=== PATIENT | male | born 1945 | race Caucasian/White ===

== ENCOUNTER 2017-09-10 21:40 | Emergency (ER) | payer MEDICARE, OTHER | END 2017-09-11 03:01 | disposition home or self-care (01) | LOC: E/R 09-11 03:01 | DX: H53.9 Unspecified visual disturbance (principal); Z87.891 Personal history of nicotine dependence | CPT/HCPCS: 99282 ==

== ENCOUNTER 2017-09-30 05:12 | Inpatient (IN) | payer MEDICARE, OTHER ==
[2017-09-30] MEDS: SODIUM CHLORIDE 0.9% 1L BAG IV* (06:18)
[2017-09-30 06:23] LABS: ADD MAN DIFF? NO
[2017-09-30 06:27] LABS: ABNORMAL IP MESSAGE 1; BASOPHILS % 0.4 % (0.0-2.0); EOSINOPHILS # 0.1 10^3/ul (0.0-0.5); EOSINOPHILS % 0.9 % (0.0-7.0); HEMATOCRIT 39.3 % (42.0-52.0); HEMOGLOBIN 13.2 g/dl (14.0-18.0); LYMPHOCYTES # 0.4 10^3/ul (0.8-2.9); LYMPHOCYTES % 5.6 % (15.0-51.0); MEAN CORPUSCULAR HEMOGLOBIN 32.2 pg (29.0-33.0); MEAN CORPUSCULAR HGB CONC 33.6 g/dl (32.0-37.0); MEAN CORPUSCULAR VOLUME 95.9 fl (82.0-101.0); MEAN PLATELET VOLUME 8.1 fl (7.4-10.4); MONOCYTE # 0.5 10^3/ul (0.3-0.9); NEUTROPHIL # 5.8 10^3/ul (1.6-7.5); NEUTROPHILS % 85.4 % (39.0-77.0); PLATELET COUNT 280 10^3/UL (140-415); POSITIVE DIFF @See below; RED CELL DISTRIBUTION WIDTH 13.4 % (11.5-14.5)
[2017-09-30 06:27] LABS: WHITE BLOOD COUNT 6.8 10^3/ul (4.8-10.8)
[2017-09-30 06:46] LABS: PROTIME 11.1 Sec (11.9-14.9); PT RATIO 0.9
[2017-09-30 06:47] LABS: LACTIC ACID 0.6 mmol/L (0.5-2.0)
[2017-09-30 06:47] LABS: ALANINE AMINOTRANSFERASE 10 IU/L (13-69); ALBUMIN 4.1 g/dl (3.3-4.9); ALBUMIN/GLOBULIN RATIO 1.13; ALKALINE PHOSPHATASE 140 IU/L (42-121); ANION GAP 13 (8-16); ASPARTATE AMINO TRANSFERASE 38 IU/L (15-46); BILIRUBIN,INDIRECT 0.2 mg/dl (0-1.1); BILIRUBIN,TOTAL 0.2 mg/dl (0.2-1.3); BLOOD UREA NITROGEN 10 mg/dl (7-20); CALCIUM 8.8 mg/dl (8.4-10.2); CARBON DIOXIDE 31 mmol/L (21-31); CHLORIDE 87 mmol/L (97-110); CREATININE 0.77 mg/dl (0.61-1.24); GLUCOSE 96 mg/dl (70-220); PARTIAL THROMBOPLASTIN TIME 36.1 Sec (25.0-35.0); POTASSIUM 4.1 mmol/L (3.5-5.1); SODIUM 127 mmol/L (135-144); TOTAL PROTEIN 7.7 g/dl (6.1-8.1)
[2017-09-30 06:59] LABS: TROPONIN-I < 0.010 ng/ml (0.000-0.120)
[2017-09-30 08:01] LABS: ADD UMIC NO; UR ASCORBIC ACID NEGATIVE (NEGATIVE); UR BILIRUBIN (Dip) NEGATIVE (NEGATIVE); UR BLOOD (Dip) NEGATIVE (NEGATIVE); UR CLARITY CLEAR (CLEAR); UR COLOR COLORLESS (YELLOW); UR GLUCOSE (Dip) NEGATIVE (NEGATIVE); UR KETONES (Dip) NEGATIVE (NEGATIVE); UR LEUKOCYTE ESTERASE (Dip) NEGATIVE Leu/ul (NEGATIVE); UR NITRITE (Dip) NEGATIVE (NEGATIVE); UR SPECIFIC GRAVITY (Dip) 1.002 (1.003-1.030); UR TOTAL PROTEIN (Dip) NEGATIVE (NEGATIVE); UR UROBILINOGEN (Dip) NEGATIVE (NEGATIVE)
[2017-09-30] MEDS ORDERED: MAGNESIUM HYDROXIDE 30ML CUP PO (09:00)
[2017-09-30] MEDS ORDERED: NACL 0.9% 3 ML SYG IV (09:00)
[2017-09-30] MEDS ORDERED: ONDANSETRON 4 MG INJ IV (09:00)
[2017-09-30] MEDS: DULOXETINE 20 MG CAP DR PO (10:05)
[2017-09-30] MEDS: AMLODIPINE 10 MG TAB PO (10:05)
[2017-09-30] MEDS: SOD CHLORIDE 0.9% 1,000 ML IV ×2 (10:06→17:43)
[2017-09-30] MEDS: OLANZAPINE 5 MG TAB PO (10:06)
[2017-09-30] MEDS: HYDROCODONE/APAP (5/325) TAB PO (13:21)
[2017-09-30 13:38] LABS: LACTIC ACID 1.3 mmol/L (0.5-2.0)
[2017-09-30 14:47] LABS: URIC ACID 2.9 mg/dl (3.1-7.9)
[2017-10-01] MEDS: ACETAMINOPHEN 325 MG TAB PO ×2 (02:49→14:53)
[2017-10-01] MEDS: PANTOPRAZOLE (EC) 40 MG TAB PO (06:14)
[2017-10-01] MEDS: SOD CHLORIDE 0.9% 1,000 ML IV ×2 (06:14→14:53)
[2017-10-01] MEDS: LEVOTHYROXINE 100 MCG TAB PO (06:15)
[2017-10-01 07:30] LABS: ADD MAN DIFF? NO
[2017-10-01 07:40] LABS: ABNORMAL IP MESSAGE 1; BASOPHILS % 0.5 % (0.0-2.0); EOSINOPHILS % 0.3 % (0.0-7.0); HEMATOCRIT 41.9 % (42.0-52.0); HEMOGLOBIN 13.5 g/dl (14.0-18.0); LYMPHOCYTES # 0.4 10^3/ul (0.8-2.9); LYMPHOCYTES % 6.7 % (15.0-51.0); MEAN CORPUSCULAR HEMOGLOBIN 30.9 pg (29.0-33.0); MEAN CORPUSCULAR HGB CONC 32.2 g/dl (32.0-37.0); MEAN CORPUSCULAR VOLUME 95.9 fl (82.0-101.0); MEAN PLATELET VOLUME 8.2 fl (7.4-10.4); MONOCYTE # 0.4 10^3/ul (0.3-0.9); MONOCYTES % 5.9 % (0.0-11.0); NEUTROPHIL # 5.4 10^3/ul (1.6-7.5); NEUTROPHILS % 86.1 % (39.0-77.0); PLATELET COUNT 295 10^3/UL (140-415); POSITIVE DIFF @See below; RED BLOOD COUNT 4.37 10^6/ul (4.70-6.10); RED CELL DISTRIBUTION WIDTH 13.6 % (11.5-14.5)
[2017-10-01 07:40] LABS: WHITE BLOOD COUNT 6.3 10^3/ul (4.8-10.8)
[2017-10-01] MEDS: AMLODIPINE 10 MG TAB PO (08:18)
[2017-10-01] MEDS: DULOXETINE 20 MG CAP DR PO (08:18)
[2017-10-01] MEDS: OLANZAPINE 5 MG TAB PO (08:18)
[2017-10-01 08:29] LABS: ALBUMIN 3.5 g/dl (3.3-4.9); ANION GAP 11 (8-16); BLOOD UREA NITROGEN 12 mg/dl (7-20); CALCIUM 8.4 mg/dl (8.4-10.2); CARBON DIOXIDE 29 mmol/L (21-31); CHLORIDE 95 mmol/L (97-110); GLUCOSE 84 mg/dl (70-220); MAGNESIUM 1.8 mg/dl (1.7-2.5); PHOSPHORUS 3.7 mg/dl (2.5-4.9); POTASSIUM 4.1 mmol/L (3.5-5.1); SODIUM 131 mmol/L (135-144)
[2017-10-01] MEDS ORDERED: hydrALAzine 20 MG INJ IV (20:30)
[2017-10-02] MEDS: SOD CHLORIDE 0.9% 1,000 ML IV ×3 (00:50→20:20)
[2017-10-02] MEDS: ACETAMINOPHEN 325 MG TAB PO (01:21)
[2017-10-02] MEDS: LEVOTHYROXINE 100 MCG TAB PO (06:23)
[2017-10-02] MEDS: PANTOPRAZOLE (EC) 40 MG TAB PO (06:23)
[2017-10-02 07:28] LABS: ADD MAN DIFF? NO
[2017-10-02 07:33] LABS: ABNORMAL IP MESSAGE 1; BASOPHILS % 0.4 % (0.0-2.0); EOSINOPHILS % 0.1 % (0.0-7.0); HEMATOCRIT 38.9 % (42.0-52.0); HEMOGLOBIN 12.5 g/dl (14.0-18.0); LYMPHOCYTES # 0.4 10^3/ul (0.8-2.9); MEAN CORPUSCULAR HEMOGLOBIN 31.8 pg (29.0-33.0); MEAN CORPUSCULAR HGB CONC 32.1 g/dl (32.0-37.0); MEAN PLATELET VOLUME 7.8 fl (7.4-10.4); MONOCYTE # 0.4 10^3/ul (0.3-0.9); NEUTROPHIL # 8.2 10^3/ul (1.6-7.5); NEUTROPHILS % 90.9 % (39.0-77.0); PLATELET COUNT 301 10^3/UL (140-415); POSITIVE DIFF @See below; RED BLOOD COUNT 3.93 10^6/ul (4.70-6.10); RED CELL DISTRIBUTION WIDTH 13.7 % (11.5-14.5)
[2017-10-02 07:59] LABS: ALBUMIN 3.4 g/dl (3.3-4.9); ANION GAP 12 (8-16); BLOOD UREA NITROGEN 12 mg/dl (7-20); CALCIUM 8.3 mg/dl (8.4-10.2); CARBON DIOXIDE 29 mmol/L (21-31); CHLORIDE 94 mmol/L (97-110); CREATININE 0.71 mg/dl (0.61-1.24); GLUCOSE 98 mg/dl (70-220); MAGNESIUM 1.7 mg/dl (1.7-2.5); PHOSPHORUS 3.3 mg/dl (2.5-4.9); POTASSIUM 3.5 mmol/L (3.5-5.1); SODIUM 131 mmol/L (135-144)
[2017-10-02] MEDS: DULOXETINE 20 MG CAP DR PO (08:47)
[2017-10-02] MEDS: AMLODIPINE 10 MG TAB PO (08:47)
[2017-10-02] MEDS: OLANZAPINE 5 MG TAB PO (08:47)
[2017-10-02] MEDS: POTASSIUM CHLORIDE (SR) 20 MEQ TAB PO (09:33)
[2017-10-02] MEDS: MAGNESIUM OXIDE 400 MG TAB PO (09:33)
[2017-10-03] MEDS: PANTOPRAZOLE (EC) 40 MG TAB PO (04:34)
[2017-10-03] MEDS: LEVOTHYROXINE 100 MCG TAB PO (04:34)
[2017-10-03] MEDS: SOD CHLORIDE 0.9% 1,000 ML IV ×3 (04:34→21:33)
[2017-10-03 06:08] LABS: ADD MAN DIFF? NO
[2017-10-03 06:17] LABS: WHITE BLOOD COUNT 8.9 10^3/ul (4.8-10.8)
[2017-10-03 06:17] LABS: ABNORMAL IP MESSAGE 1; BASOPHILS % 0.3 % (0.0-2.0); EOSINOPHILS % 0.1 % (0.0-7.0); HEMATOCRIT 33.8 % (42.0-52.0); HEMOGLOBIN 11.2 g/dl (14.0-18.0); LYMPHOCYTES # 0.3 10^3/ul (0.8-2.9); LYMPHOCYTES % 3.2 % (15.0-51.0); MEAN CORPUSCULAR HEMOGLOBIN 32.1 pg (29.0-33.0); MEAN CORPUSCULAR HGB CONC 33.1 g/dl (32.0-37.0); MEAN CORPUSCULAR VOLUME 96.8 fl (82.0-101.0); MEAN PLATELET VOLUME 8.3 fl (7.4-10.4); MONOCYTE # 0.5 10^3/ul (0.3-0.9); MONOCYTES % 5.9 % (0.0-11.0); NEUTROPHILS % 90.1 % (39.0-77.0); PLATELET COUNT 290 10^3/UL (140-415); POSITIVE DIFF @See below; RED BLOOD COUNT 3.49 10^6/ul (4.70-6.10); RED CELL DISTRIBUTION WIDTH 13.8 % (11.5-14.5)
[2017-10-03 06:44] LABS: ANION GAP 11 (8-16); BLOOD UREA NITROGEN 9 mg/dl (7-20); CALCIUM 8.2 mg/dl (8.4-10.2); CARBON DIOXIDE 27 mmol/L (21-31); CHLORIDE 96 mmol/L (97-110); CREATININE 0.57 mg/dl (0.61-1.24); GLUCOSE 93 mg/dl (70-220); MAGNESIUM 1.5 mg/dl (1.7-2.5); PHOSPHORUS 3.1 mg/dl (2.5-4.9); POTASSIUM 3.8 mmol/L (3.5-5.1); SODIUM 130 mmol/L (135-144)
[2017-10-03] MEDS: MAGNESIUM OXIDE 400 MG TAB PO (08:48)
[2017-10-03] MEDS: OLANZAPINE 5 MG TAB PO (08:48)
[2017-10-03] MEDS: DULOXETINE 20 MG CAP DR PO (08:48)
[2017-10-03] MEDS: AMLODIPINE 10 MG TAB PO (08:49)
[2017-10-03] MEDS: HYDROCODONE/APAP (5/325) TAB PO (18:55)
[2017-10-03] MEDS ORDERED: HYDROCODONE/APAP (5/325) TAB PO (23:00)
[2017-10-04] MEDS: HYDROCODONE/APAP (5/325) TAB PO ×2 (02:28→21:12)
[2017-10-04] MEDS: LEVOTHYROXINE 100 MCG TAB PO (04:55)
[2017-10-04] MEDS: DOCUSATE SODIUM 100 MG CAP PO (04:55)
[2017-10-04] MEDS: PANTOPRAZOLE (EC) 40 MG TAB PO (04:55)
[2017-10-04 06:02] LABS: ADD MAN DIFF? NO
[2017-10-04 06:08] LABS: ABNORMAL IP MESSAGE 1; BASOPHILS % 0.2 % (0.0-2.0); EOSINOPHILS % 0.1 % (0.0-7.0); HEMATOCRIT 29.1 % (42.0-52.0); HEMOGLOBIN 9.4 g/dl (14.0-18.0); LYMPHOCYTES # 0.3 10^3/ul (0.8-2.9); LYMPHOCYTES % 3.6 % (15.0-51.0); MEAN CORPUSCULAR HEMOGLOBIN 32.2 pg (29.0-33.0); MEAN CORPUSCULAR HGB CONC 32.3 g/dl (32.0-37.0); MEAN CORPUSCULAR VOLUME 99.7 fl (82.0-101.0); MEAN PLATELET VOLUME 8.3 fl (7.4-10.4); MONOCYTE # 0.7 10^3/ul (0.3-0.9); MONOCYTES % 7.3 % (0.0-11.0); NEUTROPHIL # 7.8 10^3/ul (1.6-7.5); NEUTROPHILS % 87.8 % (39.0-77.0); PLATELET COUNT 206 10^3/UL (140-415); POSITIVE DIFF @See below; RED BLOOD COUNT 2.92 10^6/ul (4.70-6.10); RED CELL DISTRIBUTION WIDTH 14.1 % (11.5-14.5)
[2017-10-04 06:08] LABS: WHITE BLOOD COUNT 8.9 10^3/ul (4.8-10.8)
[2017-10-04 06:39] LABS: ALBUMIN 2.2 g/dl (3.3-4.9); ANION GAP 7 (8-16); BLOOD UREA NITROGEN 9 mg/dl (7-20); CARBON DIOXIDE 24 mmol/L (21-31); CHLORIDE 108 mmol/L (97-110); CREATININE 0.43 mg/dl (0.61-1.24); GLUCOSE 69 mg/dl (70-220); MAGNESIUM 1.1 mg/dl (1.7-2.5); PHOSPHORUS 2.4 mg/dl (2.5-4.9); SODIUM 136 mmol/L (135-144)
[2017-10-04 06:41] LABS: CALCIUM 5.9 mg/dl (8.4-10.2)
[2017-10-04 08:36] LABS: CALCIUM 8.3 mg/dl (8.4-10.2)
[2017-10-04] MEDS: OLANZAPINE 5 MG TAB PO (09:28)
[2017-10-04] MEDS: DULOXETINE 20 MG CAP DR PO (09:28)
[2017-10-04] MEDS: POTASSIUM CHLORIDE (SR) 20 MEQ TAB PO ×2 (09:28→11:48)
[2017-10-04] MEDS: AMLODIPINE 10 MG TAB PO (09:29)
[2017-10-04] MEDS: MAGNESIUM SULFATE 4 GM/100 ML 100 ML IVPB (11:41)
[2017-10-04] MEDS: SOD CHLORIDE 0.9% 1,000 ML IV (12:50)
[2017-10-05 06:12] LABS: ADD MAN DIFF? NO
[2017-10-05 06:17] LABS: WHITE BLOOD COUNT 12.8 10^3/ul (4.8-10.8)
[2017-10-05 06:17] LABS: ABNORMAL IP MESSAGE 1; BASOPHILS % 0.2 % (0.0-2.0); EOSINOPHILS % 0.1 % (0.0-7.0); HEMATOCRIT 32.9 % (42.0-52.0); LYMPHOCYTES # 0.4 10^3/ul (0.8-2.9); LYMPHOCYTES % 2.8 % (15.0-51.0); MEAN CORPUSCULAR HEMOGLOBIN 32.4 pg (29.0-33.0); MEAN CORPUSCULAR HGB CONC 33.4 g/dl (32.0-37.0); MEAN CORPUSCULAR VOLUME 97.1 fl (82.0-101.0); MEAN PLATELET VOLUME 8.4 fl (7.4-10.4); MONOCYTES % 8.1 % (0.0-11.0); NEUTROPHIL # 11.3 10^3/ul (1.6-7.5); NEUTROPHILS % 88.3 % (39.0-77.0); PLATELET COUNT 246 10^3/UL (140-415); POSITIVE DIFF @See below; RED BLOOD COUNT 3.39 10^6/ul (4.70-6.10)
[2017-10-05] MEDS: PANTOPRAZOLE (EC) 40 MG TAB PO (06:32)
[2017-10-05] MEDS: LEVOTHYROXINE 100 MCG TAB PO (06:32)
[2017-10-05 06:34] LABS: ALBUMIN 3.3 g/dl (3.3-4.9); ANION GAP 11 (8-16); BLOOD UREA NITROGEN 15 mg/dl (7-20); CALCIUM 8.4 mg/dl (8.4-10.2); CARBON DIOXIDE 30 mmol/L (21-31); CHLORIDE 90 mmol/L (97-110); CREATININE 0.61 mg/dl (0.61-1.24); GLUCOSE 97 mg/dl (70-220); MAGNESIUM 1.9 mg/dl (1.7-2.5); POTASSIUM 4.6 mmol/L (3.5-5.1); SODIUM 126 mmol/L (135-144)
[2017-10-05 06:49] LABS: PHOSPHORUS 3.6 mg/dl (2.5-4.9)
[2017-10-05] MEDS: AMLODIPINE 10 MG TAB PO (08:38)
[2017-10-05] MEDS: OLANZAPINE 5 MG TAB PO (08:38)
[2017-10-05] MEDS: DULOXETINE 20 MG CAP DR PO (08:38)
[2017-10-05] MEDS: SOD CHLORIDE 0.9% 1,000 ML IV (11:15)
[2017-10-05] MEDS: SODIUM CHLORIDE 1 GM TAB PO (15:13)
[2017-10-06] MEDS: HYDROCODONE/APAP (5/325) TAB PO ×2 (01:00→15:02)
[2017-10-06] MEDS: PANTOPRAZOLE (EC) 40 MG TAB PO (06:39)
[2017-10-06] MEDS: LEVOTHYROXINE 100 MCG TAB PO (06:39)
[2017-10-06 07:08] LABS: ADD MAN DIFF? NO
[2017-10-06 07:16] LABS: ABNORMAL IP MESSAGE 1; BASOPHILS % 0.4 % (0.0-2.0); EOSINOPHILS % 0.4 % (0.0-7.0); HEMATOCRIT 31.3 % (42.0-52.0); HEMOGLOBIN 10.1 g/dl (14.0-18.0); LYMPHOCYTES # 0.4 10^3/ul (0.8-2.9); LYMPHOCYTES % 5.7 % (15.0-51.0); MEAN CORPUSCULAR HEMOGLOBIN 31.4 pg (29.0-33.0); MEAN CORPUSCULAR HGB CONC 32.3 g/dl (32.0-37.0); MEAN CORPUSCULAR VOLUME 97.2 fl (82.0-101.0); MEAN PLATELET VOLUME 8.4 fl (7.4-10.4); MONOCYTE # 0.8 10^3/ul (0.3-0.9); MONOCYTES % 10.7 % (0.0-11.0); NEUTROPHIL # 5.9 10^3/ul (1.6-7.5); NEUTROPHILS % 82.4 % (39.0-77.0); PLATELET COUNT 233 10^3/UL (140-415); POSITIVE DIFF @See below; RED BLOOD COUNT 3.22 10^6/ul (4.70-6.10); RED CELL DISTRIBUTION WIDTH 13.8 % (11.5-14.5)
[2017-10-06 07:16] LABS: WHITE BLOOD COUNT 7.2 10^3/ul (4.8-10.8)
[2017-10-06 08:12] LABS: ANION GAP 12 (8-16); BLOOD UREA NITROGEN 12 mg/dl (7-20); CALCIUM 8.4 mg/dl (8.4-10.2); CARBON DIOXIDE 28 mmol/L (21-31); CHLORIDE 91 mmol/L (97-110); CREATININE 0.59 mg/dl (0.61-1.24); GLUCOSE 104 mg/dl (70-220); MAGNESIUM 1.6 mg/dl (1.7-2.5); PHOSPHORUS 3.5 mg/dl (2.5-4.9); SODIUM 127 mmol/L (135-144)
[2017-10-06] MEDS: DULOXETINE 20 MG CAP DR PO (08:23)
[2017-10-06] MEDS: OLANZAPINE 5 MG TAB PO (08:24)
[2017-10-06] MEDS: AMLODIPINE 10 MG TAB PO (08:24)
[2017-10-06] MEDS: MAGNESIUM OXIDE 400 MG TAB PO (12:50)
[2017-10-07] MEDS: HYDROCODONE/APAP (5/325) TAB PO (03:22)
[2017-10-07] MEDS: PANTOPRAZOLE (EC) 40 MG TAB PO (06:02)
[2017-10-07] MEDS: LEVOTHYROXINE 100 MCG TAB PO (06:02)
[2017-10-07] MEDS: OLANZAPINE 5 MG TAB PO (08:12)
[2017-10-07] MEDS: DULOXETINE 20 MG CAP DR PO (08:12)
[2017-10-07] MEDS: AMLODIPINE 10 MG TAB PO (08:13)
[2017-10-07] MEDS: MAGNESIUM OXIDE 400 MG TAB PO (20:55)
[2017-10-08] MEDS: ACETAMINOPHEN 325 MG TAB PO (02:27)
[2017-10-08] MEDS: PANTOPRAZOLE (EC) 40 MG TAB PO (06:02)
[2017-10-08] MEDS: LEVOTHYROXINE 100 MCG TAB PO (06:02)
[2017-10-08] MEDS: DULOXETINE 20 MG CAP DR PO (08:48)
[2017-10-08] MEDS: AMLODIPINE 10 MG TAB PO (08:49)
[2017-10-08] MEDS: MAGNESIUM OXIDE 400 MG TAB PO ×2 (08:49→20:08)
[2017-10-08] MEDS: OLANZAPINE 5 MG TAB PO (08:49)
[2017-10-09] MEDS: PANTOPRAZOLE (EC) 40 MG TAB PO (05:59)
[2017-10-09] MEDS: LEVOTHYROXINE 100 MCG TAB PO (06:00)
[2017-10-09] MEDS: MAGNESIUM OXIDE 400 MG TAB PO (08:35)
[2017-10-09] MEDS: DULOXETINE 20 MG CAP DR PO (08:35)
[2017-10-09] MEDS: AMLODIPINE 10 MG TAB PO (08:36)
[2017-10-09] MEDS: OLANZAPINE 5 MG TAB PO (08:38)
[2017-10-20 14:04] LABS: TSH RECEPTOR ANTIBODY 9 (< OR = 16)
== END 2017-10-09 15:40 | DRG 200 ==
LOC: E/R 05:12 → TEL 07:36
PROC: 0W9930Z Drainage of Right Pleural Cavity with Drainage Device, Percutaneous Approach (ICD-10-PCS; principal; 2017-10-03)
DX: J93.83 Other pneumothorax (principal); S22.41XA Multiple fractures of ribs, right side, initial encounter for closed fracture; E87.1 Hypo-osmolality and hyponatremia; Z59.0 Homelessness; I10 Essential (primary) hypertension; E03.9 Hypothyroidism, unspecified; M10.9 Gout, unspecified; Z87.891 Personal history of nicotine dependence; F12.90 Cannabis use, unspecified, uncomplicated; Y09 Assault by unspecified means; H40.9 Unspecified glaucoma; J44.9 Chronic obstructive pulmonary disease, unspecified; Z90.2 Acquired absence of lung [part of]; Z85.118 Personal history of other malignant neoplasm of bronchus and lung; I48.0 Paroxysmal atrial fibrillation; F39 Unspecified mood [affective] disorder; J98.09 Other diseases of bronchus, not elsewhere classified
CPT/HCPCS: 36415; 71045; 71046; 71250; 75989; 80053; 80069; 81003; 82310; 83605; 83735; 84235; 84443; 84484; 84560; 85025; 85610; 85730; 87040; 87086; 93005; 93306; 97116; 97161; 97164; 97165; 97530; 99285-25

== ENCOUNTER 2018-01-05 00:51 | Emergency (ER) | payer MEDICARE, OTHER ==
[2018-01-05 02:22] LABS: ADD MAN DIFF? NO
[2018-01-05 02:24] LABS: WHITE BLOOD COUNT 5.7 10^3/ul (4.8-10.8)
[2018-01-05 02:24] LABS: ABNORMAL IP MESSAGE 1; BASOPHILS % 0.2 % (0.0-2.0); HEMATOCRIT 41.8 % (42.0-52.0); LYMPHOCYTES # 0.3 10^3/ul (0.8-2.9); MEAN CORPUSCULAR HEMOGLOBIN 29.5 pg (29.0-33.0); MEAN CORPUSCULAR HGB CONC 33.5 g/dl (32.0-37.0); MEAN CORPUSCULAR VOLUME 88.2 fl (82.0-101.0); MONOCYTE # 0.3 10^3/ul (0.3-0.9); MONOCYTES % 5.3 % (0.0-11.0); NEUTROPHILS % 87.8 % (39.0-77.0); PLATELET COUNT 240 10^3/UL (140-415); POSITIVE DIFF @See below; RED BLOOD COUNT 4.74 10^6/ul (4.70-6.10); RED CELL DISTRIBUTION WIDTH 15.2 % (11.5-14.5)
[2018-01-05 02:42] LABS: ANION GAP 10 (5-13); BLOOD UREA NITROGEN 25 mg/dl (7-20); CALCIUM 9.4 mg/dl (8.4-10.2); CARBON DIOXIDE 34 mmol/L (21-31); CHLORIDE 88 mmol/L (97-110); CREATININE 1.16 mg/dl (0.61-1.24); GLUCOSE 86 mg/dl (70-220); SODIUM 132 mmol/L (135-144)
[2018-01-05 02:43] LABS: POTASSIUM 3.5 mmol/L (3.5-5.1)
[2018-01-05 02:44] LABS: BARBITURATES Negative (NEGATIVE); BENZODIAZEPINES Negative (NEGATIVE); CANNABINOIDS Positive (NEGATIVE); COCAINE Negative (NEGATIVE); OPIATES Negative (NEGATIVE)
[2018-01-05 02:45] LABS: AMPHETAMINE/METHAMPHETAMINE Positive (NEGATIVE)
[2018-01-05] MEDS: IBUPROFEN 600 MG TAB PO (03:53)
[2018-01-05] MEDS: OLANZAPINE (ODT) 5 MG TAB ODT (04:27)
[2018-01-05 04:59] LABS: ETHANOL < 10.0 mg/dl
[2018-01-05] MEDS: NICARDipine HCL 30 MG CAPSULE PO (17:26)
[2018-01-05] MEDS ORDERED: OLANZAPINE 5 MG TAB PO (21:00)
== END 2018-01-05 21:30 ==
LOC: E/R 21:30
DX: S01.01XA Laceration without foreign body of scalp, initial encounter (principal); S09.90XA Unspecified injury of head, initial encounter; F19.20 Other psychoactive substance dependence, uncomplicated; F19.920 Other psychoactive substance use, unspecified with intoxication, uncomplicated; I10 Essential (primary) hypertension; W18.39XA Other fall on same level, initial encounter; Y92.9 Unspecified place or not applicable
CPT/HCPCS: 12002; 70450; 72125; 80048; 80307; 85025; 93005; 99285-25

== ENCOUNTER 2018-01-23 14:31 | Emergency (ER) | payer MEDICARE, OTHER ==
[2018-01-23 15:48] LABS: ADD MAN DIFF? NO
[2018-01-23 16:01] LABS: ABNORMAL IP MESSAGE 1; BASOPHILS % 0.6 % (0.0-2.0); EOSINOPHILS % 0.4 % (0.0-7.0); HEMATOCRIT 28.6 % (42.0-52.0); HEMOGLOBIN 9.4 g/dl (14.0-18.0); LYMPHOCYTES # 0.3 10^3/ul (0.8-2.9); LYMPHOCYTES % 4.6 % (15.0-51.0); MEAN CORPUSCULAR HGB CONC 32.9 g/dl (32.0-37.0); MEAN CORPUSCULAR VOLUME 91.4 fl (82.0-101.0); MEAN PLATELET VOLUME 7.6 fl (7.4-10.4); MONOCYTE # 0.5 10^3/ul (0.3-0.9); NEUTROPHIL # 5.8 10^3/ul (1.6-7.5); NEUTROPHILS % 85.5 % (39.0-77.0); PLATELET COUNT 375 10^3/UL (140-415); POSITIVE DIFF @See below; RED BLOOD COUNT 3.13 10^6/ul (4.70-6.10)
[2018-01-23 16:01] LABS: WHITE BLOOD COUNT 6.8 10^3/ul (4.8-10.8)
[2018-01-23] MEDS: NALOXONE 2 MG SYG IV (16:03)
[2018-01-23] MEDS: SOD CHLORIDE 0.9% 1,000 ML IV (16:04)
[2018-01-23] MEDS: KETOROLAC 15 MG INJ IV (16:08)
[2018-01-23 16:15] LABS: ALANINE AMINOTRANSFERASE 17 IU/L (13-69); ALBUMIN 3.3 g/dl (3.3-4.9); ALBUMIN/GLOBULIN RATIO 1.13; ALKALINE PHOSPHATASE 65 IU/L (42-121); ANION GAP 6 (5-13); ASPARTATE AMINO TRANSFERASE 20 IU/L (15-46); BILIRUBIN,INDIRECT 0.2 mg/dl (0-1.1); BILIRUBIN,TOTAL 0.2 mg/dl (0.2-1.3); BLOOD UREA NITROGEN 15 mg/dl (7-20); CALCIUM 8.3 mg/dl (8.4-10.2); CARBON DIOXIDE 31 mmol/L (21-31); CHLORIDE 90 mmol/L (97-110); CREATININE 0.67 mg/dl (0.61-1.24); GLUCOSE 93 mg/dl (70-220); LIPASE 70 U/L (23-300); POTASSIUM 4.2 mmol/L (3.5-5.1); SODIUM 127 mmol/L (135-144); TOTAL PROTEIN 6.2 g/dl (6.1-8.1)
[2018-01-23 16:26] LABS: TROPONIN-I < 0.012 ng/ml (0.000-0.120)
== END 2018-01-23 18:51 | disposition home or self-care (01) ==
LOC: E/R 14:31
DX: F51.01 Primary insomnia (principal); R60.9 Edema, unspecified; M54.5 Low back pain; R40.2142 Coma scale, eyes open, spontaneous, at arrival to emergency department; R40.2252 Coma scale, best verbal response, oriented, at arrival to emergency department; R40.2362 Coma scale, best motor response, obeys commands, at arrival to emergency department; I10 Essential (primary) hypertension; E03.9 Hypothyroidism, unspecified; Z85.118 Personal history of other malignant neoplasm of bronchus and lung; Z85.810 Personal history of malignant neoplasm of tongue; Z87.891 Personal history of nicotine dependence
CPT/HCPCS: 36415; 71045; 80053; 83690; 84484; 85025; 93005; 96374; 96375; 99285-25